=== PATIENT | male | born 1960 | race Caucasian/White ===

== ENCOUNTER 2025-05-18 12:24 | Inpatient (IN) | payer MEDICARE, MEDICAID ==
[~2025-05-18] VITALS: Ht 172.7 cm; Wt 78.1 kg
[~2025-05-18 12:24] MED LIST: ASPI-1406 PO; ATOR-2 PO; CLOP-31 PO; INSU100I13 SUBCUT; INSU100I28 SUBCUT; LOSA50TA41 PO; METF-416 PO
[2025-05-18 12:25] VITALS: O2SAT 100
[2025-05-18] MEDS: ASPIRIN 325MG EC TABLET PO ONE (15:24)
[2025-05-18 16:08] LABS: BASOPHILS % 0.2 % (0.0-2.0); EOSINOPHILS % 1.4 % (0.0-5.0); HEMATOCRIT. 40.4 % (42.0-52.0); HEMOGLOBIN. 13.5 g/dL (14.0-18.0); LYMPHOCYTES % 18.0 % (20.0-50.0); MEAN PLATELET VOLUME 9.5 fl (7.4-10.4); MONOCYTES % 6.2 % (2.0-8.0); NEUTROPHILS % 74.2 % (40.0-76.0); PLATELET 230 x1000/uL (130-400); RED BLOOD CELL COUNT 4.66 mill/uL (4.7-6.1); RED CELL DISTRIBUTION WIDTH 13.7 % (11.6-14.6)
[2025-05-18 16:21] LABS: CREATININE 1.8 mg/dL (0.6-1.3); UREA NITROGEN BLOOD 31.0 mg/dL (9-23)
[2025-05-18 16:22] LABS: TROPONIN I HIGH SENSITIVITY 5 ng/L (3.0-53)
[2025-05-18] MEDS: METOPROLOL TARTRATE 5MG/5ML VIAL IV ONE (17:28)
[2025-05-18] MEDS: MORPHINE SULFATE 2 MG/ML INJ (NOT FOR IM USE) IV ONE (17:31)
[2025-05-18] MEDS: ONDANSETRON HCL 4MG/2ML INJ IV ONE (17:31)
[2025-05-18 19:24] LABS: TROPONIN I HIGH SENSITIVITY 6 ng/L (3.0-53)
[2025-05-18] MEDS ORDERED: ACETAMINOPHEN 325MG TABLET PO PRN ×2 (19:45)
[2025-05-18] MEDS ORDERED: IPRATROPIUM/ALBUTEROL 0.5-3(2.5)MG/3ML NEB HHN PRN (19:45)
[2025-05-18] MEDS ORDERED: DOCUSATE SODIUM 100MG CAPSULE PO PRN (19:45)
[2025-05-18] MEDS ORDERED: ONDANSETRON HCL 4MG/2ML INJ IV PRN (19:45)
[2025-05-18] MEDS ORDERED: MAGNESIUM/ALUMINUM HYDROXIDE/SIMETHICONE 30ML UDC PO PRN (19:45)
[2025-05-18] MEDS ORDERED: GUAIFENESIN 200MG/10ML SUGAR FREE UDC PO PRN (19:45)
[2025-05-18 20:00] VITALS: BP 157/69; PULSE 60; RESP 20; TEMP 37; O2SAT 97
[2025-05-18] MEDS: INSULIN LISPRO 100 UNITS/ML SUBCUT SCH (21:00)
[2025-05-18] MEDS ORDERED: DEXTROSE 50% WATER 50ML SYRINGE IV PRN (21:00)
[2025-05-18] MEDS: LOSARTAN 50 MG TABLET PO SCH (21:00)
[2025-05-18] MEDS: BLOOD SUGAR DIAGNOSTIC STRIP TEST SCH (21:43)
[2025-05-18] MEDS: ATORVASTATIN CALCIUM 40MG TABLET PO SCH (22:27)
[2025-05-18 23:20] LABS: CLARITY URINE CLEAR (CLEAR); COLOR URINE YELLOW (YELLOW); GLUCOSE URINE NEGATIVE (NEGATIVE); KETONES URINE NEGATIVE (NEGATIVE); LEUKOCYTE ESTERASE URINE NEGATIVE (NEGATIVE); NITRITE URINE NEGATIVE (NEGATIVE); OCCULT BLOOD URINE NEGATIVE (NEGATIVE); PH URINE 6.0 (4.5-8.0); PROTEIN URINE 3+ (NEGATIVE); SPECIFIC GRAVITY URINE 1.014 (1.005-1.030); UROBILINOGEN URINE 0.2 E.U./dL (0.2-1.0)
[2025-05-18] MEDS: INSULIN GLARGINE 100 UNITS/ML SUBCUT SCH (23:23)
[2025-05-18 23:29] LABS: *AMPHETAMINES SCREEN URINE NEGATIVE (NEGATIVE); *BARBITURATES SCREEN URINE NEGATIVE (NEGATIVE); *BENZODIAZEPINES SCREEN URINE NEGATIVE (NEGATIVE); *COCAINE SCREEN URINE NEGATIVE (NEGATIVE); CANNABINOID URINE SCREEN NEGATIVE (NEGATIVE); ECSTASY MDMA SCREEN URINE NEGATIVE (NEGATIVE); METHADONE URINE SCREEN NEGATIVE (NEGATIVE); OPIATES URINE SCREEN PRESUMPTIVE POSITIVE (NEGATIVE); PHENCYCLIDINE URINE SCREEN NEGATIVE (NEGATIVE)
[2025-05-18 23:57] LABS: BACTERIA URINE NONE SEEN; RBC URINE 0-2 /hpf (0-2); SQUAMOUS EPITHELIAL CELL URINE NONE SEEN /lpf (RARE/1+); WBC URINE 0-2 /hpf (0-2)
[2025-05-19] VITALS: BP 126/62; PULSE 64; RESP 20; TEMP 36.7; O2SAT 100
[2025-05-19 00:18] LABS: PHOSPHORUS 3.4 mg/dL (2.5-4.9); TROPONIN I HIGH SENSITIVITY 6 ng/L (3.0-53)
[2025-05-19 00:21] LABS: FOLIC ACID (FOLATE) SERUM 11.58 ng/mL (>5.38)
[2025-05-19 00:22] LABS: VITAMIN B12 SERUM 403 pg/mL (211-911)
[2025-05-19 01:59] VITALS: BP 157/69; PULSE 60; RESP 18; TEMP 37.0296
[2025-05-19 04:00] VITALS: BP 125/57; PULSE 55; RESP 20; TEMP 36.7; O2SAT 98
[2025-05-19] MEDS: INSULIN LISPRO 100 UNITS/ML SUBCUT SCH (06:33)
[2025-05-19] MEDS: ENOXAPARIN 40MG/0.4ML SYR SUBCUT SCH (08:41)
[2025-05-19 08:42] LABS: BASOPHILS % 0.5 % (0.0-2.0); EOSINOPHILS % 2.3 % (0.0-5.0); HEMATOCRIT. 37.1 % (42.0-52.0); HEMOGLOBIN. 12.5 g/dL (14.0-18.0); LYMPHOCYTES % 27.3 % (20.0-50.0); MEAN PLATELET VOLUME 10.0 fl (7.4-10.4); MONOCYTES % 9.7 % (2.0-8.0); NEUTROPHILS % 60.2 % (40.0-76.0); PLATELET 201 x1000/uL (130-400); RED BLOOD CELL COUNT 4.27 mill/uL (4.7-6.1); RED CELL DISTRIBUTION WIDTH 13.7 % (11.6-14.6)
[2025-05-19] MEDS: FAMOTIDINE 20MG/2ML VIAL IV SCH (08:42)
[2025-05-19] MEDS: ASPIRIN 81MG TABLET PO SCH (08:42)
[2025-05-19] MEDS: SPIRONOLACTONE 25MG TABLET PO SCH (08:42)
[2025-05-19] MEDS: EMPAGLIFLOZIN 25MG TABLET PO SCH (08:42)
[2025-05-19] MEDS: CLOPIDOGREL 75MG TABLET PO SCH (08:43)
[2025-05-19 08:53] LABS: CREATININE 1.6 mg/dL (0.6-1.3); UREA NITROGEN BLOOD 23 mg/dL (9-23)
[2025-05-19 08:56] LABS: CREATINE KINASE MB FRACTION < 0.5 ng/mL (0.5-3.6)
[2025-05-19 08:57] LABS: TROPONIN I HIGH SENSITIVITY 6 ng/L (3.0-53)
[2025-05-19 09:00] LABS: T4 FREE 1.24 ng/dL (0.89-1.76)
[2025-05-19] MEDS ORDERED: PANTOPRAZOLE SODIUM 40 MG/VIAL IV SCH (09:00)
[2025-05-19] MEDS ORDERED: ENOXAPARIN 40MG/0.4ML SYR SUBCUT SCH (09:00)
[2025-05-19] MEDS ORDERED: METOPROLOL SUCCINATE 25MG ER TABLET PO SCH (09:00)
[2025-05-19] MEDS ORDERED: LOSARTAN 50 MG TABLET PO SCH (09:00)
[2025-05-19 09:52] LABS: HEPATITIS C AB NON REACTIVE (Neg) (Negative)
[2025-05-19 11:18] VITALS: BP 121/73; PULSE 74; TEMP 97.7
== END 2025-05-19 12:43 | disposition home or self-care (01) | DRG 392 ==
LOC: ER 12:24 → 8WST 16:38 → EDBEDREQTM 16:41 → EDBEDREQ 16:41 → ENRESERV 18:02 → CANRESERV 18:02
PROVIDERS: ADMIT Internal Medicine; ATTEND Internal Medicine
DX: K21.9 Gastro-esophageal reflux disease without esophagitis (principal); D64.9 Anemia, unspecified; E11.22 Type 2 diabetes mellitus with diabetic chronic kidney disease; E78.00 Pure hypercholesterolemia, unspecified; E78.5 Hyperlipidemia, unspecified; Z79.02 Long term (current) use of antithrombotics/antiplatelets; I12.9 Hypertensive chronic kidney disease with stage 1 through stage 4 chronic kidney disease, or unspecified chronic kidney disease; N18.32 Chronic kidney disease, stage 3b; H54.8 Legal blindness, as defined in USA; Z79.4 Long term (current) use of insulin; Z79.84 Long term (current) use of oral hypoglycemic drugs; Z86.73 Personal history of transient ischemic attack (TIA), and cerebral infarction without residual deficits
CPT/HCPCS: 36415; 71045; 80048; 80305; 81003; 82553; 82607; 82728; 82746; 82962; 83036; 83540; 83550; 83735; 84100; 84439; 84443; 84484; 85025; 85379; 86705; 87340; 93005; 96374; 96375; 99285; A4606; J1308; J1650; J1815; J2270; J2405; J3490